=== PATIENT | female | born 1945 | race Caucasian/White ===

== ENCOUNTER 2017-04-12 02:25 | Inpatient (IN) | payer MEDICARE, OTHER ==
--- NOTE | ~2017-04-12 | EGD ---
EGD REPORT [facility] [address] [address] NAME: JOANNE SMITH : 43 STATUS : ADM IN PAT#: [id number] AGE: 72 ADM/REG DATE : 04/12/17 MR#: [id number] REPORT SERV DATE: 04/20/17 DICTATED BY: KVNG CLARK DATE: 04/20/17 REPORT STATUS : Draft [facility]ANSCRIBED [facility]: [facility] DATE: 04/20/17 [facility] Center Patient Name: Joanne Smith Date of : 1945 Attending MD: KVNG CLARK MD Procedure Date No Time: 04/20/2017 Procedure: ERCP Indications: Biliary sludge on Ultrasound Medicines: General Anesthesia Complications: No immediate complications. Estimated blood loss: Minimal. Procedure: Pre-Anesthesia Assessment: - ASA Grade Assessment: III - A patient with severe systemic disease. After obtaining informed consent, the scope was passed under direct vision. Throughout the procedure, the patient's blood pressure, pulse, and oxygen saturations were monitored continuously. The Endoscope was introduced through the mouth, and advanced to the duodenum and used to inject contrast into the bile duct. The ERCP was accomplished without difficulty. The patient tolerated the procedure well. Findings: The casting and curing operator film was normal. The esophagus was successfully intubated under direct vision using the device assisted enteroscope without detailed examination of the pharynx, larynx, and associated structures. The esophagus was successfully intubated under direct vision without detailed examination of the pharynx, larynx, and associated structures, and upper GI tract. The upper GI tract was grossly normal. A transhepatic wire was emerging from the major papilla. The percutaneous transhepatic wire was brought out through the ERCP scope using a snare. The bile duct was deeply cannulated with the short-nosed traction sphincterotome over the PTC wire. Contrast was injected. I personally interpreted the bile duct images. Image quality was adequate. The lower third of the main bile duct contained filling defect(s). The entire biliary tree was diffusely dilated, acquired. The largest diameter was 15 mm. A 12 mm biliary sphincterotomy was made with a monofilament traction (standard) sphincterotome using ERBE electrocautery. The sphincterotomy oozed blood. The biliary tree was swept with a 12 mm balloon starting at the bifurcation. Sludge and biliary mucus was swept from the duct. There was the appearance of a small shelf of tissue at the distal CBD that would not clear with balloon sweeps, possibly related to an elongated sphincter zone. Cells for cytology were obtained by brushing to assure there was no suggestion of malignancy. One 10 Fr EGD REPORT [address] [place]. [address] NAME: JOANNE SMITH : [birth year] STATUS : ADM IN [facility]#: [id number] AGE: 72 ADM/REG DATE : 04/12/17 MR#: [id number] REPORT SERV DATE: 04/20/17 DICTATED BY: KVNG CLARK DATE: 04/20/17 REPORT STATUS : Draft TRANSCRIBED BY: [employer] DATE: 04/20/17 by 7 cm plastic stent with a single external flap and a single internal flap was placed into the common bile duct. Bile flowed through the stent. The stent was in good position. The endoscope was withdrawn from the patient. The biliary wire was also removed and the transhepatic site was bandaged. Impression: - A transhepatic wire was seen in the major papilla. This was pulled after the procedure. - A filling defect was seen on the cholangiogram s/p brushings for cytology - Biliary sludge/mucus removed with sphincterotomy and stent placement. Recommendation: - [facility]. - Await cytology results. - Return to referring drapery supervisor for stent removal at ERCP in 6 weeks. Procedure Code(s): --- Professional --- 69994, Endoscopic retrograde cholangiopancreatography (ERCP); with placement of endoscopic stent into biliary or pancreatic duct, including pre- and post-dilation and guide wire passage, when performed, including sphincterotomy, when performed, each stent 64790, Endoscopic retrograde cholangiopancreatography (ERCP); with removal of calculi/debris from biliary/pancreatic duct(s) Diagnosis Code(s): --- Professional --- Z96.89, Presence of other specified functional implants R93.2, Abnormal findings on diagnostic imaging of liver and biliary tract K83.5, Biliary cyst K83.8, Other specified diseases of biliary tract K87, Disorders of gallbladder, biliary tract and pancreas in diseases classified elsewhere CPT copyright 2013 [employer]. All rights reserved. The codes documented in this report are preliminary and upon airline ticket agent review may be revised to meet current compliance requirements. Kvng Clark MD KVNG CLARK MD 04/20/2017 2:01 PM EGD REPORT [facility] [address] [place] [address]. [address] NAME: JOANNE SMITH : [birth year] STATUS : ADM IN [facility]#: [id number] AGE: 72 ADM/REG DATE : 04/12/17 MR#: [id number] REPORT SERV DATE: 04/20/17 DICTATED BY: KVNG CLARK DATE: 04/20/17 REPORT STATUS : Draft TRANSCRIBED BY: [employer] DATE: 04/20/17 This report has been signed electronically. Number of Addenda: 0 Note Initiated On: 04/20/2017 12:03 PM Scope Withdrawal Time 0 hours 0 minutes [address] [place] [address] [id number]
--- NOTE | ~2017-04-12 | IDS ---
Interim Discharge Summary [facility] [address] [place]. [address] NAME: DEXTER MANZANARES : 43 STATUS : ADM IN [facility]#: [id number] AGE: 72 ADM/REG DATE : 04/12/17 MR#: [id number] REPORT SERV DATE: 04/19/17 DICTATED BY: RACIEL LIM DATE: 04/19/17 REPORT STATUS : Draft TRANSCRIBED BY: MODL DATE: 04/19/17 ADMISSION DATE: 04/12/2017 DISCHARGE DATE: REASON FOR ADMISSION: This is a 72-year-old female, who came in with chief complaint of abdominal pain, nausea, and vomiting. INTERIM DISCHARGE DIAGNOSES: 1. Acute pancreatitis with common bile duct filling defect of unclear etiology. 2. Iron deficiency anemia. 3. Coronary artery disease. 4. Hypertension. 5. Chronic kidney disease. HOSPITAL COURSE: Acute pancreatitis with common bile duct filling defect. The patient was admitted for right upper quadrant abdominal pain with nausea and vomiting. She did have a CT scan of the abdomen and pelvis on admission, which would show a distended gallbladder without evidence of stones, but a dilated common bile duct of about 11 mm normal appearing appendix as well as pancreas. Also on admission, the patient's lipase was elevated at 441, that would trend down. Her liver function tests were actually all within normal limits including her alkaline phosphatase. GI would be consulted. After MRCP was done, which would show intraparenchymal and extrahepatic ductal system obstructed. Pancreatic duct also obstructed. There is at least a stricture and possibility of small stones in the distal common bile duct. Gallbladder itself unremarkable. An abdominal ultrasound was performed, which showed dilated intra and extrahepatic bile ducts, which is essentially the same findings that were found on this ultrasound as we found on CT. Dr. Lovett with GI would see the patient and he would do an ERCP, this would show papillary stenosis, but he was concerned about possible pancreatic ampullary neoplasm and consulted Dr. Mariee for an endoscopic ultrasound. Dr. Mariee would perform the endoscopic ultrasound on 04/16/2017 that would show dilation of the common bile duct measured up to 10 mm. Filling defect found in the lower third of the main bile duct. Non-shadowing appeared to be mobile, any question whether it was a soft stone, bile or mucus ball versus a small intraluminal mass. No sign of significant pathology in the entire pancreas. No lymph nodes were visualized, and a limited Doppler examination performed and revealed no significant vascular abnormality and then he recommended to perform a repeat ERCP today. So, Dr. Mariee would perform the ERCP today. However, the patient apparently her common bile duct was very stenotic and after multiple attempts with multiple different techniques. He was unable to cannulate the bile duct and had to cease efforts at about 1 hour. Now, he recommends getting Interventional Radiology involved because perhaps they can have placement of a rendezvous wire to assist in cannulation of the common bile duct. He has already consulted Dr. Butts from Interventional Radiology to do this tomorrow. Through all of this, the patient is still having right upper quadrant pain. This being controlled with p.r.n. analgesics, but has not ceased at any point. So, this still needs to be addressed and fixed. Hopefully, that will be able to be done tomorrow. CURRENT MEDICATIONS: Interim Discharge Summary [address] [address] NAME: DEXTER MANZANARES : [birth year] STATUS : ADM IN [facility]#: [id number] AGE: 72 ADM/REG DATE : 04/12/17 MR#: [id number] REPORT SERV DATE: 04/19/17 DICTATED BY: RACIEL LIM DATE: 04/19/17 REPORT STATUS : Draft TRANSCRIBED BY: ANA LILIA DATE: 04/19/17 1. Atorvastatin 20 mg p.o. daily. 2. Carvedilol 12.5 mg p.o. b.i.d. 3. Lisinopril 20 mg p.o. daily. 4. Zosyn 3.375 g IV q.8 hours. 5. Sertraline 100 mg p.o. daily. 6. Ferrous gluconate IV q.12 hours. 7. Ambien 2.5 mg p.o. at bedtime. CURRENT PLAN: The patient to have Interventional Radiology perform ERCP again tomorrow and try to resolve the common bile duct filling defect. The patient's care to be assumed by Dr. Gregory. CARL/ANA LILIA Raciel Lim APN / [id number] CC: Cheyenne Glover M.D. Alan Shikoh, M.D. William M. Cooney, MD Adrien K. Strickland, M.D.
--- NOTE | ~2017-04-12 | HP ---
History And Physical [address] [place]. [address] NAME: DEXTER SMITH : 43 STATUS : ADM IN [facility]#: [id number] AGE: 72 ADM/REG DATE : 04/12/17 MR#: [id number] REPORT SERV DATE: 04/12/17 DICTATED BY: CHANDU VELOZ DATE: 04/12/17 REPORT STATUS : Draft TRANSCRIBED BY: MODIrvin DATE: 04/12/17 DATE OF ADMISSION: 04/12/2017 POINT OF ENTRY: Transfer from [facility]. PRIMARY VISUAL EFFECTS EDITOR: Gregory Costa M.D. CHIEF COMPLAINT: Abdominal pain, nausea, vomiting. HISTORY OF PRESENT ILLNESS: Ms. Smith is a 72-year-old female with a history of hypertension, hyperlipidemia, coronary artery disease, COPD and a history of abdominal aortic aneurysm, who presents to the emergency department at [facility] on Wednesday evening with a one-day history of diffuse abdominal pain with intractable nausea and vomiting. The patient states that her symptoms began approximately 3 p.m. on Wednesday afternoon. Described as diffuse crampy and sharp and stabbing abdominal pain, as well as associated with multiple episodes of nausea and vomiting. She denies any fevers, night sweats, chills, chest pain, palpitations, shortness of breath, cough, sputum production, melena, hematochezia, diarrhea, constipation. Initial evaluation over at [facility] noted for amylase of 401, lipase of 1474. White count mildly elevated at 11.3. Remainder of her labs otherwise unremarkable except for creatinine of 1.5. CT scan of pelvis was done, which showed normal-appearing pancreas; however, the gallbladder was distended without evidence of any stones. However, the common bile duct was also mildly dilated at 11 mm. They did see a 4.1 cm saccular infrarenal abdominal aortic aneurysm concerning for an ulcerated plaque versus short-segment dissection. The patient was subsequently transferred to [facility] for higher level of care as they do not have vascular surgical back up at [facility]. Upon arrival, the patient states she still having some mild abdominal pain, but denies any further nausea or vomiting. She does state that for the past month she has had postprandial abdominal discomfort and occasional nausea. Comprehensive review of system otherwise negative unless listed in the history of present illness. PAST MEDICAL HISTORY: 1. Coronary artery disease with prior coronary artery bypass grafting. 2. Hypertension. 3. Hyperlipidemia. 4. COPD. 5. Abdominal aortic aneurysm. Last imaged in 2016 with 4 cm. 6. History of chronic systolic heart failure, ejection fracture of 35-40% from 2013 echocardiogram. SURGICAL HISTORY: Coronary artery bypass grafting [place] [address] Gipson. ALLERGIES: CIPROFLOXACIN. History And Physical [address] [address] NAME: DEXTER SMITH : 43 STATUS : ADM IN PAT#: [id number] AGE: 72 ADM/REG DATE : 04/12/17 MR#: [id number] REPORT SERV DATE: 04/12/17 DICTATED BY: CHANDU VELOZ DATE: 04/12/17 REPORT STATUS : Draft TRANSCRIBED BY: ANA LILIA DATE: 04/12/17 HOME MEDICATIONS: 1. Albuterol two puff inhalation p.r.n. 2. Aspirin 81 mg b.i.d. 3. Atorvastatin 20 mg at bedtime. 4. Carvedilol 12.5 mg b.i.d. 5. Lisinopril 20 mg daily. 6. Meloxicam 7.5 mg daily. 7. Zoloft 100 mg daily. 8. Ambien 10 mg at bedtime. SOCIAL HISTORY: Former smoker quit about four years ago. Denies any alcohol or illicits. FAMILY HISTORY: Mother with diabetes. Father's history is unknown. Siblings with history of liver disease. LABS AND IMAGING: All obtained from transfer records from [facility]: 1. White count 11.3, hemoglobin 11.0, hematocrit 36.9, and platelet count is 241. 2. Sodium is 136, potassium 4.6, chloride 105, carbon dioxide 21, BUN 21, creatinine 1.5, calcium 9.0, protein 7.0, albumin 3.9, bilirubin is 0.6, ALT 17, AST 52, alkaline phosphatase is 102. 3. Amylase is 401, lipase is 1474. 4. Troponin 0.02. 5. Urinalysis record is 1.017 clear with 1+ leukocyte esterase with 2 white blood cells per high-powered field. 6. CT scan of the abdomen and pelvis shows distended gallbladder without evidence of stones, but a dilated common bile duct of 11 mm, normal-appearing appendix as well as pancreas with calcific atherosclerotic plaques in the aorta as well as iliac system. She has a 4.1 cm saccular infrarenal abdominal aortic aneurysm with an area of ulcerated plaque versus short-segment dissection. PHYSICAL EXAMINATION: VITAL SIGNS: Temperature 98.5 degrees Fahrenheit, pulse is 98, respirations 16, saturating 94% on 2 L nasal cannula, blood pressure 109/57. GENERAL: The patient is awake, alert, in no acute distress. Resting comfortably in bed. She is a well-developed, well-nourished, elderly female. at bedside. HEENT: Atraumatic, normocephalic. Moist mucous membranes. Pupils are equal, round, reactive to light and accommodation. Extraocular eye movements are intact. No scleral icterus. NECK: No jugular venous distention. No carotid bruits. CARDIAC: Regular rate and rhythm. No murmurs or gallops. Normal S1, normal S2. LUNGS: Clear to auscultation bilaterally. No wheezes, rhonchi, or crackles. Does have some prolonged respiratory phase in the bases and decreased breath sounds in the bases. ABDOMEN: Soft, hypoactive bowel sounds throughout. She appears to be diffusely tender to palpation over all quadrants more so over the epigastrium and bilateral lower quadrants. Negative Mcelroy sign. No rebound, guarding, or rigidity. EXTREMITIES: Warm, well perfused. No cyanosis, clubbing, or edema. History And Physical [address] [address] NAME: DEXTER SMITH : 43 STATUS : ADM IN [facility]#: [id number] AGE: 72 ADM/REG DATE : 04/12/17 MR#: [id number] REPORT SERV DATE: 04/12/17 DICTATED BY: CHANDU VELOZ DATE: 04/12/17 REPORT STATUS : Draft TRANSCRIBED BY: MODL DATE: 04/12/17 SKIN: Warm and dry. PSYCH: Affect appropriate. NEURO: Alert and oriented x3. Cranial nerves 2 through 12 grossly intact. Speech is normal. Gait not assessed. ASSESSMENT AND PLAN: Ms. Smith is a 72-year-old female, who presents with a one-day history of abdominal pain, nausea, vomiting, and found to have evidence of acute pancreatitis as well as an abnormal appearing gallbladder with some concern for an abnormal appearing abdominal aortic aneurysm. PROBLEM LIST: 1. Acute pancreatitis. 2. Distended gallbladder. 3. Dilated common bile duct. 4. Leukocytosis. 5. Infrarenal abdominal aortic aneurysm with possible ulceration and dissection. PLAN: 1. Acute pancreatitis, etiology is unclear at this time. She denies any alcohol intake. Given abnormal appearing gallbladder as well as dilated common bile duct. I am concerned that she may have passed a gallstone with transient obstruction. However, her LFTs are normal. We will treat supportively with IV fluids, antiemetics, pain control, as well as nothing by mouth status. Checking fasting lipid panel for triglyceride-induced pancreatitis. 2. Distended gallbladder with a dilated common bile duct. We will further evaluate with right upper quadrant ultrasound. Given leukocytosis as well as the patient's symptoms, we will initially place on IV Zosyn to empirically cover for possible cholecystitis. 3. Abdominal aortic aneurysm with possible ulceration or dissection. Dr. nAne of Vascular Surgery was consulted upon admission. He will see patient in the morning, but suspect that this may be a chronic issue and not an acute one that needs urgent intervention. Followup consultation in the morning. 4. Leukocytosis, likely secondary to either #1 or #2 above. Again, we will place empirically on IV Zosyn to cover for possible cholecystitis pending right upper quadrant ultrasound. Urinalysis was clear. We will also check a chest x-ray. 5. DVT prophylaxis. TEDs and SCDs. CODE STATUS: The patient wished to be full code. THANH/NAA LILIA Chandu Veloz MD / [id number] History And Physical [address] [place]. [address] NAME: DEXTER SMITH : 43 STATUS : ADM IN [facility]#: [id number] AGE: 72 ADM/REG DATE : 04/12/17 MR#: [id number] REPORT SERV DATE: 04/12/17 DICTATED BY: CHANDU VELOZ DATE: 04/12/17 REPORT STATUS : Draft TRANSCRIBED BY: ANA LILIA DATE: 04/12/17 CC: Cheyenne Espino M.D. Robert Berglund, M.D.
--- NOTE | ~2017-04-12 | DS ---
Discharge Summary [facility] [address] [facility] [place]. [address] NAME: DEXTER MANZANARES : 43 STATUS : DIS IN PAT#: [id number] AGE: 72 ADM/REG DATE : 04/12/17 MR#: [id number] REPORT SERV DATE: 04/23/17 DICTATED BY: JOHN BOWSER DATE: 04/22/17 REPORT STATUS : Draft TRANSCRIBED BY: MODIrvin DATE: 04/22/17 ADMISSION DATE: 04/12/2017 DISCHARGE DATE: 04/22/2017 CONSULTATION: Gastroenterology Dr. Armando Lovett. DISCHARGE DIAGNOSES: 1. Acute pancreatitis. 2. Choledocholithiasis. 3. Common bile duct dilatation. 4. Iron deficiency anemia. 5. History of coronary artery disease. 6. Hypertension. 7. Chronic kidney disease stage 3. 8. History of abdominal aneurysm (4 cm) in 2016. 9. History of chronic systolic heart failure, ejection fraction of 35% to 40%. 10.History of chronic obstructive pulmonary disease. 11.Hyperlipidemia. DISCHARGE CONDITION: Stable. INVASIVE PROCEDURE: Upper endoscopic ultrasound EUS on 04/16/2017 impression: 1. There was dilatation in the common bile duct which measured up to 10 mm. 2. A filling defect was found in the lower third of the main bile duct. This was non- shadowing and appeared to be mobile. Question of soft stones/bile/mucus ball, also small intramural mass. There were no signs of significant pathology in the entire pancreas. No lymph nodes were visualized in the celiac region, peripancreatic region, and yuri hepatis region. A limited Doppler examination was performed and revealed no significant vascular abnormalities with recommendations to [facility], perform an ERCP in two days due to failed ERCP. ERCP on 04/20/2017 impression: A transhepatic wire was seen in the major papilla. This was pulled after the procedure. A filling defect was seen in the cholangiogram status post brushing for cytology. Biliary sludge and mucus removed with sphincterectomy and stent placement. Recommendations: 1. Follow cytology results. 2. Schedule stent removal at ERCP in 6 weeks. HISTORY OF PRESENT ILLNESS: For detailed HPI, please make reference to Dr. Chuckie Varela's dictation on 04/12/2017. In brief, this is a 72-year-old female with medical history of hypertension, hyperlipidemia, coronary artery disease, COPD, history of abdominal aortic aneurysm who presented to the emergency department of [facility] with complaints of one-day history of diffuse abdominal pain and intractable nausea and vomiting. Initial evaluation at [facility] found an amylase of 401, lipase of 1474, white cell count of 11.3. CT abdomen and pelvis showed normal-appearing pancreas, the gallbladder was distended without Discharge Summary [address] [address] NAME: DEXTER MANZANARES : 43 STATUS : DIS IN PAT#: [id number] AGE: 72 ADM/REG DATE : 04/12/17 MR#: [id number] REPORT SERV DATE: 04/23/17 DICTATED BY: JOHN BOWSER DATE: 04/22/17 REPORT STATUS : Draft TRANSCRIBED BY: ANA LILIA DATE: 04/22/17 evidence of any stones. However, the common bile duct was also mildly dilated at 11 mm. Also noted was a 4.1 cm saccular infrarenal abdominal aortic aneurysm, concerning for an ulcerated plaque versus short segment dissection. Hence, the patient was transferred from [facility] to [facility] for further vascular and surgical evaluation. Upon arrival to [facility], blood pressure was 109/57, temperature 98.5, pulse 98, respiratory rate 16, saturating 94% on 2 L of oxygen. Physical exam was noted for soft hypoactive bowel sounds, diffuse tenderness. No rebound. No guarding. An assessment of acute pancreatitis with dilated common bile duct and infra-abdominal aortic aneurysm with possible ulceration/dissection was made. The patient was admitted to the Hospitalist Service. HOSPITAL COURSE: 1. Acute pancreatitis. Initial thought was likely related to choledocholithiasis versus biliary mucus plugging. Gastroenterology was consulted. Recommended the patient to undergo ERCP, EUS, and ERCP. The first ERCP was performed on 04/16/2017 but was unsuccessful. The patient returned back to the hospital, continued on conservative management and a second ERCP was performed which was successful. It was noted that transhepatic wire was successfully passed through the major papilla and was pulled after the procedure. Biliary sludge were noticed, and mucus were removed after a successful sphincterectomy and stent placement. The patient was advised to return back to primary gastroenterology for a repeat ERCP for stent removal in 6 weeks. 2. The patient's abdominal pain significantly improved after the ERCP. The patient was able to tolerate a regular diet prior to discharge. The patient had an extensive hospital stay. For detailed hospital, also make reference to interim discharge summary dictated by Dr. Raciel Mehta, on 04/19/2017. 3. Abdominal aortic aneurysm with possible ulceration or dissection. Vascular Surgery was consulted for further evaluation. Noted that there was no active dissection, that the findings noted were likely chronic. The patient was advised to continue followup with Vascular Surgery as an outpatient. DISCHARGE CONDITION: Stable. DISCHARGE MEDICATION: 1. Lipitor 20 mg p.o. daily. 2. Coreg 12.5 mg p.o. b.i.d. 3. Lisinopril 20 mg p.o. daily. 4. Zoloft 100 mg p.o. daily. 5. Aspirin 81 mg p.o. daily. 6. Robaxin 750 mg p.o. daily. 7. Lortab 5/325 mg one p.o. q.6 hours p.r.n. DISCHARGE FOLLOWUP: 1. Follow up with Gastroenterology within two to three weeks of discharge for consideration for a repeat ERCP for stent removal. 2. Follow up with primary care physician within one to two weeks of discharge. DISCHARGE ACTIVITY: As tolerated. Discharge Summary [address] [address] NAME: DEXTER MANZANARES : 43 STATUS : DIS IN [facility]#: [id number] AGE: 72 ADM/REG DATE : 04/12/17 MR#: [id number] REPORT SERV DATE: 04/23/17 DICTATED BY: JOHN BOWSER DATE: 04/22/17 REPORT STATUS : Draft TRANSCRIBED BY: ANA LILIA DATE: 04/22/17 Greater than 35 minutes was used to prepare this patient's discharge, reconcile medication, advise the patient on discharge plans and followup. DICTATED BY: MD MONCHO Boston/ANA LILIA John Bowser MD / [id number] CC: MD Gustavo Boston M.D. Timothy D Ryder, APN James C. Balvich, MD Alan Shikoh, M.D.
--- NOTE | ~2017-04-12 | CN ---
Consultation Report [place] [id number] [place]. [address] NAME: DEXTER MANZANARES : 43 STATUS : ADM IN [facility]#: [id number] AGE: 72 ADM/REG DATE : 04/12/17 MR#: [id number] REPORT SERV DATE: 04/14/17 DICTATED BY: ARMANDO LOVETT DATE: 04/14/17 REPORT STATUS : Draft TRANSCRIBED BY: MODL DATE: 04/14/17 CONSULTATION DATE OF CONSULTATION: HISTORY OF PRESENT ILLNESS: This is a 72-year-old woman whom I am asked to see as an unattached GI consultation for pancreatitis. This woman is followed by Dr. Way for some chronic gastrointestinal issues including dyspepsia and constipation. She has had upper and lower endoscopy. She thinks her last colonoscopy was about five years ago when a couple of polyps removed. She has had intermittent colicky pain for a few months. She had a severe episode of pain in the right upper quadrant with radiation to the back on Wednesday night. She presented to [facility]. Her pancreatic enzymes were elevated with amylase of 401 and lipase of 1474. She was transferred here for further evaluation and management. CT scan at [facility] showed a normal pancreas, but some biliary dilation. Ultrasound here also showed some biliary dilation, but the pancreas was obscured by cast. An MRCP was performed, which shows bile duct dilated to about 11 mm. There is no clear evidence of gall stones in the duct or in the gallbladder, but there is an apparent stricture or ductal abnormality at the very distal part of the common bile duct. Pancreatic duct is also dilated to about 3 mm. Her lipase is now normal. CEA and CA 19-9 are normal. She is still complaining of some pain. PAST MEDICAL HISTORY: 1. Coronary artery disease. 2. Congestive heart failure. 3. COPD. 4. Hypertension. 5. Hyperlipidemia. 6. AAA. PAST SURGICAL HISTORY: Status post CABG, 2012. MEDICATIONS: Aspirin, Lipitor, Coreg, Prinivil, Zosyn, Zoloft, Ambien, and lactated Ringer's. ALLERGIES: CIPRO. FAMILY HISTORY: She has a sister with liver disease and her mother with diabetes. SOCIAL HISTORY: She quit smoking about four years ago. She is and her son is at bedside. Consultation Report [facility] [address] [place]. [address] NAME: DEXTER MANZANARES : 43 STATUS : ADM IN PAT#: [id number] AGE: 72 ADM/REG DATE : 04/12/17 MR#: [id number] REPORT SERV DATE: 04/14/17 DICTATED BY: ARMANDO LOVETT DATE: 04/14/17 REPORT STATUS : Draft TRANSCRIBED BY: MODL DATE: 04/14/17 REVIEW OF SYSTEMS: Otherwise unremarkable. PHYSICAL EXAMINATION: GENERAL: She is resting comfortably in bed, in no acute distress. VITAL SIGNS: Afebrile. SKIN: Warm and dry. LUNGS: Clear. ABDOMEN: Soft with very mild tenderness in the right upper quadrant. EXTREMITIES: No edema. HEENT: She is anicteric. LABORATORY DATA: Amylase was 401 and lipase 1474 on 04/12/2017, but today her lipase is normal. White count is normal. Hemoglobin 7.9. Liver enzymes have been normal throughout. CEA is normal. CA 19-9 is normal. IMAGING: Reviewed in the history of present illness. IMPRESSION: Biochemical evidence of pancreatitis, which is resolved, but with some persistent pain. No clear evidence of either cholelithiasis or choledocholithiasis, but abnormality in distal duct which is somewhat concerning for pancreatic or biliary malignancy. RECOMMENDATIONS: 1. Continue Zosyn. 2. Continue clear liquids and make n.p.o. after midnight. 3. Elective plan for ERCP with possible sphincterotomy, stone extraction, biliary brushing, or stenting tomorrow. /MODL Armando Lovett M.D. / [id number] CC: Cheyenne Glover M.D.
--- NOTE | ~2017-04-12 | EGD ---
EGD REPORT [facility] [address] [address] NAME: JOANNE SMITH : 43 STATUS : ADM IN PAT#: [id number] AGE: 72 ADM/REG DATE : 04/12/17 MR#: [id number] REPORT SERV DATE: 04/19/17 DICTATED BY: KVNG CLARK DATE: 04/19/17 REPORT STATUS : Draft [facility]ANS[facility]: [facility] DATE: 04/19/17 Endoscopy Center Patient Name: Joanne Smith Date of : 1945 Attending MD: KVNG CLARK MD Procedure Date No Time: 04/19/2017 Procedure: ERCP Indications: Biliary dilation on Ultrasound, Bile duct stone on Ultrasound, Biliary dilation on magnetic resonance imaging, Bile duct stone on magnetic resonance imaging Referring MD: KAE FRIEDMAN MD Medicines: General Anesthesia, Indomethacin 100 mg rectal Complications: No immediate complications. Estimated blood loss: None Procedure: Pre-Anesthesia Assessment: - ASA Grade Assessment: IV - A patient with severe systemic disease that is a constant threat to life. After obtaining informed consent, the scope was passed under direct vision. Throughout the procedure, the patient's blood pressure, pulse, and oxygen saturations were monitored continuously. The Duodenoscope was introduced through the mouth, and advanced to the duodenum and used to inject contrast into the bile duct. The ERCP was accomplished without difficulty. The patient tolerated the procedure well. Findings: The metal gauge maker film was normal. The esophagus was successfully intubated under direct vision. The scope was advanced to a normal major papilla in the descending duodenum without detailed examination of the pharynx, larynx and associated structures, and upper GI tract. The upper GI tract was grossly normal. The ampulla was engaged with the standard sphinctertome, but was very difficult to maintain adequate position with the catheter. Despite numerous attempts over the course of a full hour, the bile duct could not be cannulated with the smaller long-nosed traction sphincterotome and guidewire nor the standard short-nosed traction sphincterotome and guidewire. The biliary orifice very was stenotic. This appeared benign. After more than one hour of attempting to pass a wire into the CBD, the procedure was stopped. The endoscope was withdrawn from the patient. 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 Recommendation: - Return patient to [facility] for [facility]. - Would consider referral to an interventional EGD REPORT [address] [address] NAME: JOANNE SMITH : 43 STATUS : ADM IN [facility]#: [id number] AGE: 72 ADM/REG DATE : 04/12/17 MR#: [id number] REPORT SERV DATE: 04/19/17 DICTATED BY: KVNG CLARK DATE: 04/19/17 REPORT STATUS : Draft TRANSCRIBED BY: [employer] DATE: 04/19/17 radiologist at the next available appointment for placement of a rendezvous wire to assist with cannulation of the CBD - Will discuss with Dr. Lovett. Procedure Code(s): --- Professional --- 92655, Endoscopic retrograde cholangiopancreatography (ERCP); diagnostic, including collection of specimen(s) by brushing or washing, when performed (separate procedure) Diagnosis Code(s): --- Professional --- K83.1, Obstruction of bile duct K83.8, Other specified diseases of biliary tract K80.50, Calculus of bile duct without cholangitis or cholecystitis without obstruction K83.9, Disease of biliary tract, unspecified CPT copyright 2013 [place] [employer]. All rights reserved. The codes documented in this report are preliminary and upon tobacco conditioner review may be revised to meet current compliance requirements. Kvng Clark MD KVNG CLARK MD 04/19/2017 11:44 AM This report has been signed electronically. Number of Addenda: 0 Note Initiated On: 04/19/2017 9:51 AM Scope Withdrawal Time 0 hours 0 minutes 0 seconds [address] [place] [address]
--- NOTE | ~2017-04-12 | OP ---
Record Of Operation [facility] [address] [place] [address] NAME: DEXTER MANZANARES : 43 STATUS : ADM IN PAT#: [id number] AGE: 72 ADM/REG DATE : 04/12/17 MR#: [id number] REPORT SERV DATE: 04/15/17 DICTATED BY: ARMANDO LOVETT DATE: 04/15/17 REPORT STATUS : Draft TRANSCRIBED BY: MODIrvin DATE: 04/15/17 DATE OF PROCEDURE: PROCEDURE: ERCP. INDICATION: Abnormal imaging of the bile and pancreatic ducts with recent presentation with biochemical evidence of pancreatitis. MEDICATIONS: Propofol. MULTI SENSOR OPERATOR: Armando Lovett M.D. COMPLICATIONS: None. HISTORY: See consult note of yesterday for details. The potential risks, including bleeding, medication reaction, perforation, cholangitis, pancreatitis were reviewed, and she expressed her willingness to proceed. FINDING: We went down with 5-viewing scope and very limited survey of the stomach revealed some gastritis and a moderate amount of bile. The ampulla was identified and was found to be very flat, featureless, firm, and somewhat woody. The orifice was stenotic and very difficult to cannulate but with a tapered catheter and guide wire, I was able to get into the ampulla and get opacification of both ductal systems although not a deep cannulation. The pancreatic duct is markedly dilated throughout its entire course to 5-6 mm without any filling defects. The common bile duct is dilated without any evidence of stone or filling defect although the distal duct is not well opacified. IMPRESSION: 1. Papillary stenosis. 2. 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 RECOMMENDATIONS: We will consult interventional GI for possible EUS. /ANA LILIA Armando Lovett M.D. / [id number] CC: Cheyenne Glover M.D.
--- NOTE | ~2017-04-12 | EGD ---
EGD REPORT [facility] [address] [place] [address] NAME: JOANNE SMITH : 43 STATUS : ADM IN PAT#: [id number] AGE: 72 ADM/REG DATE : 04/12/17 MR#: [id number] REPORT SERV DATE: 04/16/17 DICTATED BY: KVNG CLARK DATE: 04/16/17 REPORT STATUS : Draft TRANSCRIBED BY: [facility] DATE: 04/16/17 Endoscopy Center Patient Name: Joanne Smith Date of : 1945 Attending MD: KVNG CLARK MD Procedure Date No Time: 04/16/2017 Procedure: Upper EUS Indications: Common bile duct dilation (acquired) seen on MRCP Medicines: Monitored Anesthesia Care Complications: No immediate complications. Estimated blood loss: None. Procedure: After obtaining informed consent, the endoscope was passed under direct vision. Throughout the procedure, the patient's blood pressure, pulse, and oxygen saturations were monitored continuously. The Endoscope was introduced through the mouth, and advanced to the second part of duodenum. The upper EUS was accomplished without difficulty. The patient tolerated the procedure well. Findings: Endosonographic Finding : There was dilation in the common bile duct which measured up to 10 mm. An oval mass was identified endosonographically in the lower third of the main bile duct. The mass measured 10 mm by 6 mm in maximal cross-sectional diameter. The outer margins were well-defined. This was non-shadowing but appeared to be mobile in the duct. There was no suggestion of obstruction while laying in left lateral decubitus position. There was no sign of significant endosonographic abnormality in the entire pancreas. No masses, no cysts, no calcifications, the pancreatic duct was regular in contour. Endosonographic imaging of the visualized portion of the liver showed no abnormalities. No lymph nodes were visualized in the celiac region (level 20), peripancreatic region and yuri hepatis region. A limited doppler examination was performed and revealed no significant vascular abnormalities. Impression: - There was dilation in the common bile duct which measured up to 10 mm. - A filling defect was found in the lower third of the main bile duct. This was non-shadowing and appeared to be mobile. Question soft stone/bile/mucus ball vs small intraluminal mass. - There was no sign of significant pathology in the EGD REPORT [place] [address] [place]. [address] NAME: JOANNE SMITH : 43 STATUS : ADM IN [facility]#: [id number] AGE: 72 ADM/REG DATE : 04/12/17 MR#: [id number] REPORT SERV DATE: 04/16/17 DICTATED BY: KVNG CLARK DATE: 04/16/17 REPORT STATUS : Draft TRANSCRIBED BY: [facility] DATE: 04/16/17 entire pancreas. - No lymph nodes were visualized in the celiac region (level 20), peripancreatic region and yuri hepatis region. - A limited doppler examination was performed and revealed no significant vascular abnormalities. Recommendation: - Return patient to [facility] for [facility] care. - Perform an ERCP in 2 days due to failed ERCP yesterday. Procedure Code(s): --- Professional --- 70140, Esophagogastroduodenoscopy, flexible, transoral; with endoscopic ultrasound examination limited to the esophagus, stomach or duodenum, and adjacent structures Diagnosis Code(s): --- Professional --- K83.8, Other specified diseases of biliary tract CPT copyright 2013 [place]. All rights reserved. The codes documented in this report are preliminary and upon parcel post carrier review may be revised to meet current compliance requirements. Kvng Clark MD KVNG CLARK MD 04/16/2017 11:13 AM This report has been signed electronically. Number of Addenda: 0 Note Initiated On: 04/16/2017 10:27 AM Scope Withdrawal Time 0 hours 0 minutes 0 seconds [address] [place] [id number]
[~2017-04-12 02:25] MED LIST: AMB10 PO; ASAB PO; CORDARONE PO; COREG12 PO; L20 PO; LIPITOR20 PO; LISINOPRIL40 MG PO; METHOC750B PO; MICRO-K10 MEQ PO; NORV5 PO; PRIN2.5 PO; PROTONIX PO; VICODINTAB PO; ZOLOFT25 MG PO
[2017-04-12] MEDS ORDERED: MOBIC7.5 PO ×2 (04:06→16:42)
[2017-04-12] MEDS ORDERED: PROAIR HFA INH ×2 (04:07→16:41)
[2017-04-12 11:04] LABS: BASOPHILS 0.2 %; BASOPHILS ABSOLUTE 0.03 10/3/uL (0.0-0.16); EOSINOPHILS 0.2 %; EOSINOPHILS ABSOLUTE 0.03 10/3/uL (0.0-0.53); HEMATOCRIT 29.6 % (36.0-48.0); HEMOGLOBIN 9.3 g/dL (12.0-16.0); IMMATURE GRANULOCYTES 0.2 %; IMMATURE GRANULOCYTES ABSOLUTE 0.03 10/3/uL (0.0-0.11); LYMPHOCYTES 16.7 %; LYMPHOCYTES ABSOLUTE 2.09 10/3/uL (0.67-4.30); MANUAL DIFF NO %; MEAN CORPUS HGB CONC 31.4 g/dL (32.0-36.0); MEAN CORPUSCULAR HEMOGLOB 31.3 pg (26.0-34.0); MEAN CORPUSCULAR VOLUME 99.7 fL (80-100); MEAN PLATELET VOLUME 11.4 fL (9.2-13.0); MONOCYTES 6.2 %; MONOCYTES ABSOLUTE 0.78 10/3/uL (0.21-1.20); NEUTROPHILS 76.5 %; NEUTROPHILS ABSOLUTE 9.57 10/3/uL (2.02-8.40); PLATELET COUNT 178 10/3/uL (150-400); RED CELL COUNT 2.97 10/6/uL (4.0-5.6); WHITE BLOOD CELLS 12.5 10/3/uL (4.5-10.5)
[2017-04-12 11:20] LABS: ALBUMIN 2.8 G/DL (3.5-5.0); ALKALINE PHOSPHATASE 74 U/L (45-117); BUN (BLOOD UREA NITROGEN) 22 MG/DL (6-23); CALCIUM, SERUM 8.3 MG/DL (8.5-10.4); CHLORIDE, SERUM 112 MMOL/L (96-112); CHOL/HDL RATIO(NOT ORDER) 2.6 (0-5); CHOLESTEROL 108 MG/DL (< 200); CO2 (CARBON DIOXIDE) 23 MMOL/L (24-34); CREATININE 1.42 MG/DL (0.55-1.02); GFR AFRICAN AMERICAN 42 ML/MIN (>=60); GFR NON AFRICAN AMERICAN 37 ML/MIN (>=60); GLOBULIN 2.9 G/DL (2.5-4.1); GLUCOSE, SERUM 95 MG/DL (60-99); HDL CHOLESTEROL 41 MG/DL (> 49); LDL CHOLESTEROL 57 MG/DL (< 130); NON-HDL CHOLESTEROL 67 MG/DL (< 160); POTASSIUM, SERUM 4.6 MMOL/L (3.5-5.3); SGOT(AST) 32 U/L (5-40); SGPT(ALT) 18 U/L (5-65); SODIUM, SERUM 141 MMOL/L (135-148); TOTAL BILIRUBIN 1.2 MG/DL (0-1.2); TOTAL PROTEIN 5.7 G/DL (6.0-8.5); TRIGLYCERIDE 52 MG/DL (< 150)
[2017-04-12 12:59] LABS: PROCALCITONIN 3.92 ng/mL (<0.5)
[2017-04-12 13:34] LABS: TROPONIN I 0.03 NG/ML (<0.05)
[2017-04-12 13:35] LABS: FOLATE 6.9 NG/ML (>5.2); ULTRASENSITIVE TSH 0.947 MCIU/ML (0.358-3.740)
[2017-04-12] MEDS ORDERED: LIPITOR20 PO (16:41)
[2017-04-12] MEDS ORDERED: COREG12 PO (16:41)
[2017-04-12] MEDS ORDERED: PRIN20 PO (16:41)
[2017-04-12] MEDS ORDERED: ASAB PO (16:41)
[2017-04-12] MEDS ORDERED: AMB10 PO (16:42)
[2017-04-12] MEDS ORDERED: METHOC750B PO (16:42)
[2017-04-12] MEDS ORDERED: ZOL100 PO (16:42)
[2017-04-13 06:00] LABS: BASOPHILS 0.2 %; BASOPHILS ABSOLUTE 0.02 10/3/uL (0.0-0.16); EOSINOPHILS 1.9 %; HEMOGLOBIN 8.7 g/dL (12.0-16.0); IMMATURE GRANULOCYTES 0.3 %; IMMATURE GRANULOCYTES ABSOLUTE 0.03 10/3/uL (0.0-0.11); LYMPHOCYTES 12.7 %; LYMPHOCYTES ABSOLUTE 1.33 10/3/uL (0.67-4.30); MEAN CORPUS HGB CONC 31.1 g/dL (32.0-36.0); MEAN CORPUSCULAR HEMOGLOB 31.2 pg (26.0-34.0); MEAN CORPUSCULAR VOLUME 100.4 fL (80-100); MONOCYTES 5.3 %; MONOCYTES ABSOLUTE 0.56 10/3/uL (0.21-1.20); NEUTROPHILS 79.6 %; NEUTROPHILS ABSOLUTE 8.37 10/3/uL (2.02-8.40); PLATELET COUNT 160 10/3/uL (150-400); RBC DISTRIBUTION WIDTH 14.9 % (12.0-16.0); RED CELL COUNT 2.79 10/6/uL (4.0-5.6); WHITE BLOOD CELLS 10.5 10/3/uL (4.5-10.5)
[2017-04-13 06:01] LABS: MANUAL DIFF NO %
[2017-04-13 06:11] LABS: A/G RATIO 0.9 (0.7-1.9); ALBUMIN 2.7 G/DL (3.5-5.0); ALKALINE PHOSPHATASE 69 U/L (45-117); BUN (BLOOD UREA NITROGEN) 25 MG/DL (6-23); CALCIUM, SERUM 8.5 MG/DL (8.5-10.4); CHLORIDE, SERUM 110 MMOL/L (96-112); CO2 (CARBON DIOXIDE) 22 MMOL/L (24-34); CREATININE 1.48 MG/DL (0.55-1.02); GFR AFRICAN AMERICAN 40 ML/MIN (>=60); GFR NON AFRICAN AMERICAN 35 ML/MIN (>=60); GLOBULIN 2.9 G/DL (2.5-4.1); GLUCOSE, SERUM 95 MG/DL (60-99); POTASSIUM, SERUM 4.5 MMOL/L (3.5-5.3); SGOT(AST) 33 U/L (5-40); SGPT(ALT) 13 U/L (5-65); SODIUM, SERUM 137 MMOL/L (135-148); TOTAL BILIRUBIN 0.9 MG/DL (0-1.2); TOTAL PROTEIN 5.6 G/DL (6.0-8.5)
[2017-04-14 05:52] LABS: ALLENS TEST Pos; BE (BASE EXCESS) -6.7 MEQ/L (0 +/- 2.5); CARBOXYHEMOGLOBIN 1.3 % (0-3); DEVICE NC; HCO3 (ACTUAL BICARBONATE) 18.6 MEQ/L (23-27); INSTRUMENT SERIAL # 8083; METHEMOGLOBIN 0.3 % (0-3); O2 CONTENT 11.2 VOL% (18-24); OPERATOR ID 35390; PCO2 (CO2 TENSION) 37 MMHG (35-45); PO2 (O2 TENSION) 121 MMHG (79-93); SAMPLE Arterial; pH 7.33 (7.37-7.43)
[2017-04-14 06:50] LABS: BASOPHILS 0.2 %; BASOPHILS ABSOLUTE 0.02 10/3/uL (0.0-0.16); EOSINOPHILS 6.5 %; EOSINOPHILS ABSOLUTE 0.59 10/3/uL (0.0-0.53); HEMATOCRIT 25.8 % (36.0-48.0); HEMOGLOBIN 7.9 g/dL (12.0-16.0); IMMATURE GRANULOCYTES 0.3 %; IMMATURE GRANULOCYTES ABSOLUTE 0.03 10/3/uL (0.0-0.11); LYMPHOCYTES 24.1 %; MEAN CORPUS HGB CONC 30.6 g/dL (32.0-36.0); MEAN CORPUSCULAR HEMOGLOB 30.7 pg (26.0-34.0); MEAN CORPUSCULAR VOLUME 100.4 fL (80-100); MEAN PLATELET VOLUME 11.2 fL (9.2-13.0); MONOCYTES 5.9 %; MONOCYTES ABSOLUTE 0.54 10/3/uL (0.21-1.20); NEUTROPHILS ABSOLUTE 5.73 10/3/uL (2.02-8.40); PLATELET COUNT 143 10/3/uL (150-400); RBC DISTRIBUTION WIDTH 15.1 % (12.0-16.0); RED CELL COUNT 2.57 10/6/uL (4.0-5.6); WHITE BLOOD CELLS 9.1 10/3/uL (4.5-10.5)
[2017-04-14 06:51] LABS: MANUAL DIFF NO %
[2017-04-14 07:11] LABS: A/G RATIO 0.9 (0.7-1.9); ALBUMIN 2.5 G/DL (3.5-5.0); ALKALINE PHOSPHATASE 64 U/L (45-117); BUN (BLOOD UREA NITROGEN) 22 MG/DL (6-23); CA-19-9 10.7 U/ML (< 37.0); CALCIUM, SERUM 8.1 MG/DL (8.5-10.4); CHLORIDE, SERUM 109 MMOL/L (96-112); CO2 (CARBON DIOXIDE) 24 MMOL/L (24-34); CREATININE 1.56 MG/DL (0.55-1.02); GFR AFRICAN AMERICAN 38 ML/MIN (>=60); GFR NON AFRICAN AMERICAN 33 ML/MIN (>=60); GLOBULIN 2.9 G/DL (2.5-4.1); GLUCOSE, SERUM 99 MG/DL (60-99); POTASSIUM, SERUM 3.9 MMOL/L (3.5-5.3); SGOT(AST) 38 U/L (5-40); SGPT(ALT) 16 U/L (5-65); SODIUM, SERUM 138 MMOL/L (135-148); TOTAL BILIRUBIN 0.6 MG/DL (0-1.2); TOTAL PROTEIN 5.4 G/DL (6.0-8.5)
[2017-04-14 07:13] LABS: CEA 1.3 NG/ML
[2017-04-17 06:30] LABS: BASOPHILS 0.3 %; BASOPHILS ABSOLUTE 0.02 10/3/uL (0.0-0.16); EOSINOPHILS ABSOLUTE 0.53 10/3/uL (0.0-0.53); HEMATOCRIT 25.6 % (36.0-48.0); IMMATURE GRANULOCYTES 0.8 %; IMMATURE GRANULOCYTES ABSOLUTE 0.05 10/3/uL (0.0-0.11); MEAN CORPUS HGB CONC 31.3 g/dL (32.0-36.0); MEAN CORPUSCULAR HEMOGLOB 30.5 pg (26.0-34.0); MEAN CORPUSCULAR VOLUME 97.7 fL (80-100); MEAN PLATELET VOLUME 11.2 fL (9.2-13.0); MONOCYTES 8.3 %; MONOCYTES ABSOLUTE 0.55 10/3/uL (0.21-1.20); NEUTROPHILS 64.6 %; NEUTROPHILS ABSOLUTE 4.31 10/3/uL (2.02-8.40); RBC DISTRIBUTION WIDTH 14.9 % (12.0-16.0); RED CELL COUNT 2.62 10/6/uL (4.0-5.6); WHITE BLOOD CELLS 6.7 10/3/uL (4.5-10.5)
[2017-04-17 06:31] LABS: ALBUMIN 2.3 G/DL (3.5-5.0); ALKALINE PHOSPHATASE 112 U/L (45-117); BUN (BLOOD UREA NITROGEN) 7 MG/DL (6-23); CHLORIDE, SERUM 110 MMOL/L (96-112); CO2 (CARBON DIOXIDE) 24 MMOL/L (24-34); CREATININE 1.11 MG/DL (0.55-1.02); DIRECT BILIRUBIN 0.1 MG/DL (0.0-0.4); GFR AFRICAN AMERICAN 57 ML/MIN (>=60); GFR NON AFRICAN AMERICAN 49 ML/MIN (>=60); GLUCOSE, SERUM 91 MG/DL (60-99); INDIRECT BILIRUBIN(NOT ORDER) 0.4 MG/DL (0.1-0.9); MANUAL DIFF NO %; PLATELET COUNT 199 10/3/uL (150-400); POTASSIUM, SERUM 3.5 MMOL/L (3.5-5.3); SGOT(AST) 45 U/L (5-40); SGPT(ALT) 18 U/L (5-65); SODIUM, SERUM 140 MMOL/L (135-148); TOTAL BILIRUBIN 0.5 MG/DL (0-1.2); TOTAL PROTEIN 5.4 G/DL (6.0-8.5)
[2017-04-18 07:22] LABS: BUN (BLOOD UREA NITROGEN) 5 MG/DL (6-23); CHLORIDE, SERUM 110 MMOL/L (96-112); CO2 (CARBON DIOXIDE) 25 MMOL/L (24-34); GFR AFRICAN AMERICAN 58 ML/MIN (>=60); GFR NON AFRICAN AMERICAN 50 ML/MIN (>=60); GLUCOSE, SERUM 85 MG/DL (60-99); POTASSIUM, SERUM 3.6 MMOL/L (3.5-5.3); SODIUM, SERUM 140 MMOL/L (135-148)
[2017-04-20 06:40] LABS: HEMATOCRIT 25.1 % (36.0-48.0); HEMOGLOBIN 7.9 g/dL (12.0-16.0); PLATELET COUNT 264 10/3/uL (150-400)
[2017-04-20 06:42] LABS: INTERNATIONAL NORMAL RATI 1.4 UNITS (-); PROTIME (NOT ORD) 17.2 SEC (12.0-14.5)
[2017-04-20 06:43] LABS: PARTIAL THROMBO TIME 43.7 SEC (22.5-37.2)
[2017-04-20 06:52] LABS: BUN (BLOOD UREA NITROGEN) 7 MG/DL (6-23); CALCIUM, SERUM 8.3 MG/DL (8.5-10.4); CHLORIDE, SERUM 107 MMOL/L (96-112); CO2 (CARBON DIOXIDE) 23 MMOL/L (24-34); CREATININE 1.06 MG/DL (0.55-1.02); GFR AFRICAN AMERICAN 60 ML/MIN (>=60); GFR NON AFRICAN AMERICAN 52 ML/MIN (>=60); GLUCOSE, SERUM 88 MG/DL (60-99); POTASSIUM, SERUM 4.2 MMOL/L (3.5-5.3); SODIUM, SERUM 141 MMOL/L (135-148)
[2017-04-21 06:58] LABS: BASOPHILS 0.2 %; BASOPHILS ABSOLUTE 0.02 10/3/uL (0.0-0.16); EOSINOPHILS 1.6 %; EOSINOPHILS ABSOLUTE 0.15 10/3/uL (0.0-0.53); HEMATOCRIT 27.4 % (36.0-48.0); HEMOGLOBIN 8.4 g/dL (12.0-16.0); IMMATURE GRANULOCYTES 0.8 %; IMMATURE GRANULOCYTES ABSOLUTE 0.07 10/3/uL (0.0-0.11); LYMPHOCYTES 11.4 %; LYMPHOCYTES ABSOLUTE 1.05 10/3/uL (0.67-4.30); MANUAL DIFF NO %; MEAN CORPUS HGB CONC 30.7 g/dL (32.0-36.0); MEAN CORPUSCULAR HEMOGLOB 30.8 pg (26.0-34.0); MEAN CORPUSCULAR VOLUME 100.4 fL (80-100); MEAN PLATELET VOLUME 11.4 fL (9.2-13.0); MONOCYTES 8.5 %; MONOCYTES ABSOLUTE 0.79 10/3/uL (0.21-1.20); NEUTROPHILS 77.5 %; NEUTROPHILS ABSOLUTE 7.16 10/3/uL (2.02-8.40); PLATELET COUNT 305 10/3/uL (150-400); RBC DISTRIBUTION WIDTH 15.6 % (12.0-16.0); RED CELL COUNT 2.73 10/6/uL (4.0-5.6); WHITE BLOOD CELLS 9.2 10/3/uL (4.5-10.5)
[2017-04-21 07:19] LABS: BUN (BLOOD UREA NITROGEN) 9 MG/DL (6-23); CALCIUM, SERUM 8.6 MG/DL (8.5-10.4); CHLORIDE, SERUM 106 MMOL/L (96-112); CO2 (CARBON DIOXIDE) 22 MMOL/L (24-34); CREATININE 1.14 MG/DL (0.55-1.02); GFR AFRICAN AMERICAN 55 ML/MIN (>=60); GFR NON AFRICAN AMERICAN 48 ML/MIN (>=60); GLUCOSE, SERUM 88 MG/DL (60-99); PHOSPHORUS, SERUM 1.5 MG/DL (2.5-4.5); POTASSIUM, SERUM 3.4 MMOL/L (3.5-5.3); SODIUM, SERUM 139 MMOL/L (135-148)
[2017-04-21 11:47] LABS: ALBUMIN 2.5 G/DL (3.5-5.0); DIRECT BILIRUBIN 0.1 MG/DL (0.0-0.4); INDIRECT BILIRUBIN(NOT ORDER) 0.3 MG/DL (0.1-0.9); SGOT(AST) 56 U/L (5-40); SGPT(ALT) 24 U/L (5-65); TOTAL BILIRUBIN 0.4 MG/DL (0-1.2); TOTAL PROTEIN 5.9 G/DL (6.0-8.5)
[2017-04-21 11:48] LABS: ALKALINE PHOSPHATASE 84 U/L (45-117)
[2017-04-22] MEDS ORDERED: SENTAB PO (12:02)
[2017-04-22] MEDS ORDERED: PCET PO (12:02)
[2017-04-22] MEDS ORDERED: BIST PO (12:03)
[2017-05-13] MEDS ORDERED: PROTONIX PO (13:15)
[2017-05-13] MEDS ORDERED: APRES25 PO (13:16)
[2017-05-13] MEDS ORDERED: ISORDIL20 PO (13:16)
[2017-05-13] MEDS ORDERED: MOBIC7.5 PO (13:19)
== END 2017-04-22 13:58 | disposition home or self-care (01) | DRG 439 ==
LOC: 1SO 02:25
PROVIDERS: Hospitalist; Internal Medicine; Internal Medicine Gastroenterology; Nurse Practitioner Gerontology
PROC: 0FJB8ZZ Inspection of Hepatobiliary Duct, Via Natural or Artificial Opening Endoscopic (ICD-10-PCS; 2017-04-15)
PROC: 0FJD8ZZ Inspection of Pancreatic Duct, Via Natural or Artificial Opening Endoscopic (ICD-10-PCS; 2017-04-15)
PROC: BD47ZZZ Ultrasonography of Gastrointestinal Tract (ICD-10-PCS; 2017-04-16)
PROC: 0DJ08ZZ Inspection of Upper Intestinal Tract, Via Natural or Artificial Opening Endoscopic (ICD-10-PCS; principal; 2017-04-16 10:36)
PROC: 0DJ08ZZ Inspection of Upper Intestinal Tract, Via Natural or Artificial Opening Endoscopic (ICD-10-PCS; 2017-04-19)
PROC: 0F798DZ Dilation of Common Bile Duct with Intraluminal Device, Via Natural or Artificial Opening Endoscopic (ICD-10-PCS; 2017-04-20)
PROC: 0FB98ZX Excision of Common Bile Duct, Via Natural or Artificial Opening Endoscopic, Diagnostic (ICD-10-PCS; 2017-04-20)
DX: K85.10 Biliary acute pancreatitis without necrosis or infection (principal); I13.0 Hypertensive heart and chronic kidney disease with heart failure and stage 1 through stage 4 chronic kidney disease, or unspecified chronic kidney disease; I50.22 Chronic systolic (congestive) heart failure; E11.22 Type 2 diabetes mellitus with diabetic chronic kidney disease; K80.51 Calculus of bile duct without cholangitis or cholecystitis with obstruction; J44.9 Chronic obstructive pulmonary disease, unspecified; I25.10 Atherosclerotic heart disease of native coronary artery without angina pectoris; E78.5 Hyperlipidemia, unspecified; I71.4 Abdominal aortic aneurysm, without rupture; N18.3 Chronic kidney disease, stage 3 (moderate); D72.829 Elevated white blood cell count, unspecified; K83.5 Biliary cyst; K83.8 Other specified diseases of biliary tract; K87 Disorders of gallbladder, biliary tract and pancreas in diseases classified elsewhere; G89.29 Other chronic pain; M54.5 Low back pain; K58.9 Irritable bowel syndrome, unspecified; D50.9 Iron deficiency anemia, unspecified; Z79.82 Long term (current) use of aspirin; Z79.1 Long term (current) use of non-steroidal anti-inflammatories (NSAID); Z79.899 Other long term (current) drug therapy; Z87.891 Personal history of nicotine dependence; Z95.1 Presence of aortocoronary bypass graft
CPT/HCPCS: 36415; 36600; 47532; 74181; 74330; 76700; 80048; 80053; 80061; 80076; 82150; 82272; 82378; 82607; 82728; 82746; 82805; 83036; 83615; 83690; 83735; 83921; 84100; 84145; 84443; 84484; 85014; 85018; 85025; 85049; 85610; 85730; 86301; 86850; 86900; 86901; 88112; 93005; 94640; 97110-GP; 97116-GP; 97161-GP; A9270-GY; C1769; C1894; C2625; G8978-CK-GP; G8979-CJ-GP; J1170; J2370; J2405; J2543; J2710; J2916; J3010; Q9967

== ENCOUNTER 2017-04-24 21:58 | Emergency (ER) | payer MEDICARE, BC ==
[~2017-04-24 21:58] MED LIST changes: +BIST PO; +MOBIC7.5 PO; +PCET PO; +PRIN20 PO; +PROAIR HFA INH; +SENTAB PO; +ZOL100 PO
[2017-04-24 23:22] LABS: BASOPHILS 0.1 %; BASOPHILS ABSOLUTE 0.01 10/3/uL (0.0-0.16); EOSINOPHILS 2.8 %; EOSINOPHILS ABSOLUTE 0.24 10/3/uL (0.0-0.53); HEMATOCRIT 27.5 % (36.0-48.0); HEMOGLOBIN 8.6 g/dL (12.0-16.0); IMMATURE GRANULOCYTES 0.7 %; IMMATURE GRANULOCYTES ABSOLUTE 0.06 10/3/uL (0.0-0.11); LYMPHOCYTES 14.9 %; LYMPHOCYTES ABSOLUTE 1.27 10/3/uL (0.67-4.30); MEAN CORPUS HGB CONC 31.3 g/dL (32.0-36.0); MEAN CORPUSCULAR HEMOGLOB 31.6 pg (26.0-34.0); MEAN CORPUSCULAR VOLUME 101.1 fL (80-100); MEAN PLATELET VOLUME 11.4 fL (9.2-13.0); MONOCYTES 5.6 %; MONOCYTES ABSOLUTE 0.48 10/3/uL (0.21-1.20); NEUTROPHILS 75.9 %; NEUTROPHILS ABSOLUTE 6.47 10/3/uL (2.02-8.40); PLATELET COUNT 335 10/3/uL (150-400); RBC DISTRIBUTION WIDTH 16.6 % (12.0-16.0); RED CELL COUNT 2.72 10/6/uL (4.0-5.6); WHITE BLOOD CELLS 8.5 10/3/uL (4.5-10.5)
[2017-04-24 23:23] LABS: MANUAL DIFF NO %
[2017-04-24 23:27] LABS: INTERNATIONAL NORMAL RATI 1.5 UNITS (-); PROTIME (NOT ORD) 18.2 SEC (12.0-14.5)
[2017-04-24 23:39] LABS: BUN (BLOOD UREA NITROGEN) 8 MG/DL (6-23); CALCIUM, SERUM 7.7 MG/DL (8.5-10.4); CHLORIDE, SERUM 108 MMOL/L (96-112); CO2 (CARBON DIOXIDE) 26 MMOL/L (24-34); CREATININE 0.92 MG/DL (0.55-1.02); GFR AFRICAN AMERICAN 72 ML/MIN (>=60); GFR NON AFRICAN AMERICAN 62 ML/MIN (>=60); GLUCOSE, SERUM 106 MG/DL (60-99); POTASSIUM, SERUM 3.4 MMOL/L (3.5-5.3); SODIUM, SERUM 140 MMOL/L (135-148)
[2017-04-24 23:40] LABS: CHEST PAIN PROFILE TAT 0 Hrs 24 Mins; TROPONIN I 0.06 NG/ML (<0.05)
[2017-05-13] MEDS ORDERED: PROTONIX PO (13:15)
[2017-05-13] MEDS ORDERED: ISORDIL20 PO (13:16)
[2017-05-13] MEDS ORDERED: APRES25 PO (13:16)
[2017-05-13] MEDS ORDERED: MOBIC7.5 PO (13:19)
== END 2017-04-24 23:37 | disposition left against medical advice (07) ==
LOC: ER 21:58
PROVIDERS: Emergency Medicine
DX: Z53.21 Procedure and treatment not carried out due to patient leaving prior to being seen by health care provider (principal); Z88.1 Allergy status to other antibiotic agents
CPT/HCPCS: 71020; 80048; 82962; 83735; 83880; 84484; 85025; 85610; 85730; 93005

== ENCOUNTER 2017-04-25 03:45 | Inpatient (IN) | payer MEDICARE ==
--- NOTE | ~2017-04-25 | DS ---
Discharge Summary [facility] [address] [place]. [address] NAME: DEXTER SMITH : 43 STATUS : DIS IN PAT#: [id number] AGE: 72 ADM/REG DATE : 04/25/17 MR#: [id number] REPORT SERV DATE: 04/29/17 DICTATED BY: LOUIS BHATIA DATE: 04/28/17 REPORT STATUS : Draft TRANSCRIBED BY: MODL DATE: 04/28/17 ADMISSION DATE: 04/25/2017 DISCHARGE DATE: 04/28/2017 Ms. Smith is a 72-year-old female with a history of heart failure with reduced EF, and hypertension, who presented to the hospital with complaints of shortness of breath at rest and exertional dyspnea. For further details please refer to H and P dictated by Dr. Varela on 04/25/2017. HOSPITAL COURSE: Upon presentation to the hospital the patient was diagnosed with CHF exacerbation. Given the acuity of her. Presenting symptoms, there was also a concern for pulmonary embolism given a D-dimer that was obtained, which was elevated. The patient had CTA which was negative for a pulmonary embolism. The patient was placed on IV diuretics, her medications restarted with resolution of her symptoms. She has remained hemodynamically stable. She is able to ambulate the halls by herself, and the patient is saturating appropriately without supplemental oxygen. Home health was offered to the patient, and the patient states that given that she significantly improved and has returned to her baseline which the patient refused home health. Given her resolution of her symptoms, given her hemodynamic stability, the patient will subsequently be discharged to home today. Plan has been discussed with the patient, who voices understanding and is agreeable with that plan. DISCHARGE DIAGNOSES: 1. Heart failure with reduced ejection fraction, ejection fraction improved from 35% to 46%. 2. Chronic obstructive pulmonary disease. 3. Hypertension. 4. Acute kidney injury. 5. Normocytic anemia. 6. Weakness and debility. 7. Obesity. DISCHARGE PHYSICAL EXAMINATION: VITAL SIGNS: Blood pressure 133/65 with a pulse of 64, respiratory rate 20, and O2 saturation 92% on room air. GENERAL: The patient lying in bed, in no acute distress. Appears stated age. Speaking in full sentences. HEENT: Normocephalic and atraumatic. Extraocular motors intact. Moist oral mucosa. NECK: Trachea midline and symmetric. No JVD noted. No thyromegaly present. No lymphadenopathy palpated. CHEST: Nontender to palpation. CARDIOVASCULAR: Regular rate and rhythm. S1, S2. No murmurs, rubs, or gallops. LUNGS: Clear to auscultation bilaterally. No crackles. No rales. No rhonchi. ABDOMEN: Positive bowel sounds. Nontender. Nondistended. Obese. EXTREMITIES: No cyanosis. No clubbing. No edema. NEUROLOGIC: Alert and oriented x3. No focal deficits appreciated. IMAGING: Discharge Summary [address] [address] NAME: DEXTER SMITH : 43 STATUS : DIS IN PAT#: [id number] AGE: 72 ADM/REG DATE : 04/25/17 MR#: [id number] REPORT SERV DATE: 04/29/17 DICTATED BY: LOUIS BHATIA DATE: 04/28/17 REPORT STATUS : Draft TRANSCRIBED BY: ANA LILIA DATE: 04/28/[address] abdomen without contrast. Impression:. a. Status post cholecystectomy with pneumobilia and internal biliary stent in place. b. No evidence at this time of sequela of acute pancreatitis. c. Small bilateral pleural effusion, CABG, strictly congenital partial right UPJ obstruction. 2. CTA of the chest. Impression:. a. No CT evidence of pulmonary embolism. b. Bibasilar constance-segmental size atelectasis with underlying small moderate bilateral pleural effusions. For further details please refer to CTA from 04/25/2017. 3. Venous Doppler. Impression: Negative bilateral lower extremity deep venous Doppler. Transthoracic echo report summary, overall quality of study is adequate. Left ventricle function borderline at 46%. Apical hypokinesis suggested. Left atrial dilatation is noted. Right ventricle function is intact. No significant valvular dysfunction found. Aortic sclerosis noted when compared to 07/17/2014, no significant change is noted. DISPOSITION: The patient will be discharged home today. ACTIVITY: As tolerated. DIET: As tolerated. Greater than 30 minutes were spent providing counseling, medication reconciliation, dictation of note, writing prescription. DICTATED BY: MD CYDNEY Jacobson/ANA LILIA Louis Bhatia MD / [id number] CC: MD Gustavo Jacboson M.D.
--- NOTE | ~2017-04-25 | HP ---
History And Physical [id number] [place]. [address] NAME: DEXTER SMITH : 43 STATUS : ADM IN [facility]#: [id number] AGE: 72 ADM/REG DATE : 04/25/17 MR#: [id number] REPORT SERV DATE: 04/25/17 DICTATED BY: CHANDU VELOZ DATE: 04/25/17 REPORT STATUS : Draft TRANSCRIBED BY: MODL DATE: 04/25/17 DATE OF ADMISSION: 04/25/2017 POINT OF ENTRY: [facility] Emergency Department. PRIMARY ROLLWAY WORKER: Dr. Costa. CHIEF COMPLAINT: Shortness of breath and dyspnea on exertion. HISTORY OF PRESENT ILLNESS: Ms. 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 The patient had a very complex hospitalization from 04/12/2017 through 04/22/2017 for acute pancreatitis. Initial CT imaging noted dilated common bile duct. 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 Brushing and cytology as well as endoscopic ultrasound were all unremarkable for evidence of malignancy. It is unclear how much IV fluid the patient received during her hospital stay. The patient states that upon discharge, she was still very weak, had very little appetite, but was tolerating liquids and whatever solids she did consume. She stated that at the time of discharge, her breathing was doing well. Upon discharge, the patient noted significant shortness of breath as well as dyspnea on exertion primarily when trying to ambulate to the restroom. She denied any orthopnea or PND. Continues to report some occasional episodes of epigastric and right upper quadrant abdominal pain, but denies any vomiting. Denies any fevers, night sweats, or chills. Initial evaluation in the emergency department notable for BNP that was very elevated at 3869. Chest x-ray shows bilateral pleural effusions with some intravascular volume overload. CT scan of the abdomen and pelvis showed no abdominal pathology, but did again show the pleural effusions. The patient was given some IV Lasix and subsequently admitted to the Hospitalist Service for further evaluation and management. Comprehensive systems otherwise negative unless listed in the history of present illness. PREVIOUS MEDICAL HISTORY: 1. Chronic systolic congestive heart failure with ejection of 35%. 2. Coronary artery disease with prior coronary artery bypass grafting. 3. Hypertension. 4. Hyperlipidemia. History And Physical [address] [address] NAME: DEXTER SMITH : 43 STATUS : ADM IN [facility]#: [id number] AGE: 72 ADM/REG DATE : 04/25/17 MR#: [id number] REPORT SERV DATE: 04/25/17 DICTATED BY: CHANDU VELOZ DATE: 04/25/17 REPORT STATUS : Draft TRANSCRIBED BY: ANA LILIA DATE: 04/25/17 5. COPD. 6. Abdominal aortic aneurysm. 7. Recent admission for acute pancreatitis, thought to be secondary to distal biliary stricture and papillary stenosis. 8. Iron-deficiency anemia. SURGICAL HISTORY: Coronary artery bypass grafting. ALLERGIES: CIPROFLOXACIN. HOME MEDICATIONS: Pending at the time of dictation. SOCIAL HISTORY: She is a former smoker. She denies any alcohol or illicits. FAMILY HISTORY: Mother with diabetes. Father's history is unknown. Siblings with history of liver disease. LABS AND IMAGIN. White count is , hemoglobin 8.6, hematocrit is 27.5, platelet count is 335. INR 1.5. 2. Sodium is 140, potassium 3.4, chloride 108, carbon dioxide 26, BUN 8, creatinine 0.92, glucose is 106, calcium is 7.7, magnesium 1.8, protein is 5.8, albumin is 2.4, bilirubin is 0.6. ALT is 38, AST 32, alkaline phosphatase is 102. 3. Lipase is 143. 4. Troponin 0.06 on recheck, now is 0.05. BNP 3869.6. 5. Chest x-ray per my review shows small to moderate sized bilateral pleural effusions and some evidence of intravascular volume overload. 6. EKG per my review shows normal sinus rhythm with low voltages diffusely, but no evidence of any acute ischemic infarction. CT scan of abdomen and pelvis per overnight virtual radiology read shows moderate to large bilateral pleural effusions. No abdominal pelvic pathology and no interval change in the patient's abdominal aortic aneurysm. PHYSICAL EXAMINATION: VITAL SIGNS: Temperature is 97.8 degrees Fahrenheit, pulse is 72, respirations 20, saturating 97% on room air, blood pressure /85, on recheck blood pressure now is 168/89. GENERAL: The patient is awake, alert, in no acute distress. Resting comfortably. She is a well-developed, well-nourished, elderly female. HEENT: Atraumatic, normocephalic. Moist mucous membranes. Pupils are equal, round, reactive to light and accommodation. Extraocular eye movements intact. No scleral icterus. NECK: No jugular venous distention. No carotid bruits. CARDIAC: Regular rate and rhythm. No murmurs or gallops. Normal S1, S2. LUNGS: Clear to auscultation bilaterally except for some decreased breath sounds in the bases and bibasilar inspiratory crackles. ABDOMEN: Soft, somewhat tender to palpation over the right upper quadrant epigastrium. No rebound, guarding, or rigidity. History And Physical [address] [address] NAME: DEXTER SMITH : 43 STATUS : ADM IN [facility]#: [id number] AGE: 72 ADM/REG DATE : 04/25/17 MR#: [id number] REPORT SERV DATE: 04/25/17 DICTATED BY: CHANDU VELOZ DATE: 04/25/17 REPORT STATUS : Draft TRANSCRIBED BY: MODIrvin DATE: 04/25/17 EXTREMITIES: Warm, perfused with no cyanosis or clubbing. Does have some trace lower extremity pedal edema. SKIN: Warm and dry. PSYCH: Affect appropriate. NEURO: Alert and oriented x3. Cranial nerves 2 through 12 grossly intact. Speech is normal. Gait not assessed. ASSESSMENT AND PLAN: Ms Smith is a 72-year-old female with a recent prolonged hospitalization for acute pancreatitis, who now presents with shortness of breath, dyspnea on exertion, and found to be in acute on chronic systolic congestive heart failure. PROBLEM LIST: 1. [id number] systolic congestive heart failure. 2. Elevated troponin level. 3. Weakness and debility. 4. Bilateral pleural effusions. 5. History of pancreatitis. 6. Anorexia. PLAN: 1. [id number] systolic congestive heart failure. The patient is not on Lasix at home. Therefore, we will start her with low-dose Lasix of 20 mg IV q.8 hours for the first 24 hours. We will attempt to diuresis, place the patient on sodium and fluid restriction. We will repeat an echocardiogram as her last one was from 2013. The patient is already on Coreg and lisinopril. Given her elevated blood pressures here in the emergency department, we will add on BiDil for afterload reduction. 2. Elevated troponin level, likely demand ischemia from her heart failure. She denies any chest pain. EKG is nonischemic. We will continue to trend out cardiac enzymes. 3. Weakness and debility. We will ask Physical Therapy to evaluate the patient as well as Case Management in consultation. 4. Anorexia. Suspect the patient is still recuperating somewhat from her hospitalization and pancreatitis. CT of abdomen and pelvis was unremarkable. We will consult Nutrition for assistance. 5. Bilateral pleural effusions on chest x-ray. These do not appear to be large enough to tap. We will attempt to address them using diuresis. 6. DVT prophylaxis. Lovenox subcu. CODE STATUS: The patient wished to be full code. THANH/ANA LILIA Chandu Veloz MD / [id number] History And Physical [address] [address] NAME: DEXTER SMITH : 43 STATUS : ADM IN [facility]#: [id number] AGE: 72 ADM/REG DATE : 04/25/17 MR#: [id number] REPORT SERV DATE: 04/25/17 DICTATED BY: CHANDU VELOZ DATE: 04/25/17 REPORT STATUS : Draft TRANSCRIBED BY: MODL DATE: 04/25/17 CC: Cheyenne Delgadillo M.D. Robert Berglund, M.D.
[2017-04-25 03:52] LABS: ALBUMIN 2.4 G/DL (3.5-5.0); DIRECT BILIRUBIN 0.2 MG/DL (0.0-0.4); INDIRECT BILIRUBIN(NOT ORDER) 0.4 MG/DL (0.1-0.9); TOTAL BILIRUBIN 0.6 MG/DL (0-1.2); TOTAL PROTEIN 5.8 G/DL (6.0-8.5); TROPONIN I 0.05 NG/ML (<0.05)
[2017-04-25 10:30] LABS: CK-MB 2.6 NG/ML; CPK 214 U/L (0-200); TROPONIN I 0.04 NG/ML (<0.05)
[2017-04-25 15:38] LABS: TROPONIN I 0.04 NG/ML (<0.05)
[2017-04-25 15:40] LABS: CK-MB 2.4 NG/ML; CPK 181 U/L (0-200)
[2017-04-25 16:19] LABS: BUN (BLOOD UREA NITROGEN) 6 MG/DL (6-23); CALCIUM, SERUM 7.5 MG/DL (8.5-10.4); CHLORIDE, SERUM 108 MMOL/L (96-112); CO2 (CARBON DIOXIDE) 27 MMOL/L (24-34); CREATININE 0.96 MG/DL (0.55-1.02); GFR AFRICAN AMERICAN 68 ML/MIN (>=60); GFR NON AFRICAN AMERICAN 59 ML/MIN (>=60); GLUCOSE, SERUM 101 MG/DL (60-99); SODIUM, SERUM 141 MMOL/L (135-148)
[2017-04-25 16:23] LABS: POTASSIUM, SERUM 4.1 MMOL/L (3.5-5.3)
[2017-04-26 05:18] LABS: BASOPHILS 0.1 %; BASOPHILS ABSOLUTE 0.01 10/3/uL (0.0-0.16); EOSINOPHILS 4.1 %; EOSINOPHILS ABSOLUTE 0.28 10/3/uL (0.0-0.53); HEMOGLOBIN 8.4 g/dL (12.0-16.0); IMMATURE GRANULOCYTES 0.4 %; IMMATURE GRANULOCYTES ABSOLUTE 0.03 10/3/uL (0.0-0.11); LYMPHOCYTES 13.4 %; LYMPHOCYTES ABSOLUTE 0.92 10/3/uL (0.67-4.30); MEAN CORPUS HGB CONC 31.1 g/dL (32.0-36.0); MEAN CORPUSCULAR HEMOGLOB 31.2 pg (26.0-34.0); MEAN CORPUSCULAR VOLUME 100.4 fL (80-100); MEAN PLATELET VOLUME 11.1 fL (9.2-13.0); MONOCYTES 7.7 %; MONOCYTES ABSOLUTE 0.53 10/3/uL (0.21-1.20); NEUTROPHILS 74.3 %; NEUTROPHILS ABSOLUTE 5.09 10/3/uL (2.02-8.40); PLATELET COUNT 300 10/3/uL (150-400); RBC DISTRIBUTION WIDTH 17.5 % (12.0-16.0); RED CELL COUNT 2.69 10/6/uL (4.0-5.6); WHITE BLOOD CELLS 6.9 10/3/uL (4.5-10.5)
[2017-04-26 05:20] LABS: MANUAL DIFF NO %
[2017-04-26 05:39] LABS: BUN (BLOOD UREA NITROGEN) 6 MG/DL (6-23); CHLORIDE, SERUM 104 MMOL/L (96-112); CO2 (CARBON DIOXIDE) 27 MMOL/L (24-34); CREATININE 0.98 MG/DL (0.55-1.02); GFR AFRICAN AMERICAN 66 ML/MIN (>=60); GFR NON AFRICAN AMERICAN 57 ML/MIN (>=60); GLUCOSE, SERUM 86 MG/DL (60-99); POTASSIUM, SERUM 3.7 MMOL/L (3.5-5.3); SODIUM, SERUM 139 MMOL/L (135-148)
[2017-04-27 05:41] LABS: BASOPHILS 0.5 %; BASOPHILS ABSOLUTE 0.03 10/3/uL (0.0-0.16); EOSINOPHILS 2.3 %; EOSINOPHILS ABSOLUTE 0.14 10/3/uL (0.0-0.53); HEMATOCRIT 25.3 % (36.0-48.0); HEMOGLOBIN 8.1 g/dL (12.0-16.0); IMMATURE GRANULOCYTES 0.5 %; IMMATURE GRANULOCYTES ABSOLUTE 0.03 10/3/uL (0.0-0.11); LYMPHOCYTES ABSOLUTE 1.12 10/3/uL (0.67-4.30); MEAN PLATELET VOLUME 10.8 fL (9.2-13.0); MONOCYTES 7.7 %; MONOCYTES ABSOLUTE 0.48 10/3/uL (0.21-1.20); NEUTROPHILS ABSOLUTE 4.41 10/3/uL (2.02-8.40); PLATELET COUNT 297 10/3/uL (150-400); RBC DISTRIBUTION WIDTH 17.9 % (12.0-16.0); RED CELL COUNT 2.53 10/6/uL (4.0-5.6); WHITE BLOOD CELLS 6.2 10/3/uL (4.5-10.5)
[2017-04-27 05:44] LABS: MANUAL DIFF NO %
[2017-04-27 05:52] LABS: BUN (BLOOD UREA NITROGEN) 5 MG/DL (6-23); CALCIUM, SERUM 7.6 MG/DL (8.5-10.4); CHLORIDE, SERUM 107 MMOL/L (96-112); CO2 (CARBON DIOXIDE) 26 MMOL/L (24-34); CREATININE 0.96 MG/DL (0.55-1.02); GFR AFRICAN AMERICAN 68 ML/MIN (>=60); GFR NON AFRICAN AMERICAN 59 ML/MIN (>=60); GLUCOSE, SERUM 89 MG/DL (60-99); POTASSIUM, SERUM 3.4 MMOL/L (3.5-5.3); SODIUM, SERUM 141 MMOL/L (135-148)
[2017-04-28 03:55] LABS: BASOPHILS 0.4 %; BASOPHILS ABSOLUTE 0.02 10/3/uL (0.0-0.16); EOSINOPHILS 3.9 %; EOSINOPHILS ABSOLUTE 0.19 10/3/uL (0.0-0.53); HEMATOCRIT 25.7 % (36.0-48.0); HEMOGLOBIN 7.9 g/dL (12.0-16.0); IMMATURE GRANULOCYTES 0.4 %; IMMATURE GRANULOCYTES ABSOLUTE 0.02 10/3/uL (0.0-0.11); LYMPHOCYTES 28.1 %; LYMPHOCYTES ABSOLUTE 1.37 10/3/uL (0.67-4.30); MEAN CORPUS HGB CONC 30.7 g/dL (32.0-36.0); MEAN CORPUSCULAR HEMOGLOB 31.3 pg (26.0-34.0); MEAN PLATELET VOLUME 11.3 fL (9.2-13.0); MONOCYTES 8.8 %; MONOCYTES ABSOLUTE 0.43 10/3/uL (0.21-1.20); NEUTROPHILS 58.4 %; NEUTROPHILS ABSOLUTE 2.84 10/3/uL (2.02-8.40); PLATELET COUNT 288 10/3/uL (150-400); RBC DISTRIBUTION WIDTH 17.8 % (12.0-16.0); RED CELL COUNT 2.52 10/6/uL (4.0-5.6); WHITE BLOOD CELLS 4.9 10/3/uL (4.5-10.5)
[2017-04-28 03:56] LABS: MANUAL DIFF NO %
[2017-04-28 04:13] LABS: A/G RATIO 0.7 (0.7-1.9); ALBUMIN 2.2 G/DL (3.5-5.0); BUN (BLOOD UREA NITROGEN) 6 MG/DL (6-23); CALCIUM, SERUM 7.5 MG/DL (8.5-10.4); CHLORIDE, SERUM 107 MMOL/L (96-112); CO2 (CARBON DIOXIDE) 27 MMOL/L (24-34); CREATININE 1.14 MG/DL (0.55-1.02); GFR AFRICAN AMERICAN 55 ML/MIN (>=60); GFR NON AFRICAN AMERICAN 48 ML/MIN (>=60); GLUCOSE, SERUM 83 MG/DL (60-99); SGOT(AST) 23 U/L (5-40); SGPT(ALT) 14 U/L (5-65); SODIUM, SERUM 140 MMOL/L (135-148); TOTAL BILIRUBIN 0.4 MG/DL (0-1.2); TOTAL PROTEIN 5.2 G/DL (6.0-8.5)
[2017-04-28 04:14] LABS: ALKALINE PHOSPHATASE 90 U/L (45-117)
[2017-04-28] MEDS ORDERED: VITAMIN B-121000 MC1 SL (09:10)
[2017-04-28] MEDS ORDERED: DSS PO (09:10)
[2017-04-28] MEDS ORDERED: BIDIL20/37 PO (09:11)
[2017-04-28] MEDS ORDERED: L20 PO (09:11)
[2017-04-28] MEDS ORDERED: L40 PO (09:12)
[2017-05-13] MEDS ORDERED: PROTONIX PO (13:15)
[2017-05-13] MEDS ORDERED: ISORDIL20 PO (13:16)
[2017-05-13] MEDS ORDERED: APRES25 PO (13:16)
[2017-05-13] MEDS ORDERED: MOBIC7.5 PO (13:19)
== END 2017-04-28 13:24 | disposition home or self-care (01) | DRG 292 ==
LOC: ER 03:45 → 5NO 07:31
PROVIDERS: Internal Medicine; Specialist
DX: I11.0 Hypertensive heart disease with heart failure (principal); I24.8 Other forms of acute ischemic heart disease; N17.9 Acute kidney failure, unspecified; J44.9 Chronic obstructive pulmonary disease, unspecified; Z95.1 Presence of aortocoronary bypass graft; I25.10 Atherosclerotic heart disease of native coronary artery without angina pectoris; E78.5 Hyperlipidemia, unspecified; I71.4 Abdominal aortic aneurysm, without rupture; D50.9 Iron deficiency anemia, unspecified; Z88.1 Allergy status to other antibiotic agents; I50.23 Acute on chronic systolic (congestive) heart failure; R63.0 Anorexia; E66.9 Obesity, unspecified; Z68.33 Body mass index [BMI] 33.0-33.9, adult; R53.81 Other malaise
CPT/HCPCS: 71275; 74176; 80048; 80053; 80076; 82550; 82553; 83690; 83735; 84132; 84484; 85025; 85379; 93005; 93306; 93970; 94640; 97161-GP; 99285; A9270-GY; G8978-CK-GP; G8979-CJ-GP; J1940; J2405; Q9967